=== PATIENT | female | born 1975 | race Caucasian/White ===

== ENCOUNTER 2017-11-25 22:56 | Inpatient (IN) | payer BC, OTHER ==
[~2017-11-25] VITALS: Ht 162.6 cm; Wt 107.9 kg
--- NOTE | ~2017-11-25 | EKG ---
[address] [address] ELECTROCARDIOGRAM REPORT Name: LARY EDGE Room #: 243-[facility].R.#: [id number] Admission: 11/26/17 Attend Phys: Dmitry Lo MD Discharge: Date of : 77 Report #: [id number] THIS REPORT FOR: //name// [facility] ED Test Date: 2017-11-25 Test Time: 23:02:29 Pat Name: LARY EDGE Department: Room: 243 Gender: F Biological Plant Operator: RAINA : 1975 Requested By: Frankie Flores Order Number: [id number] MD: Bharathi Gomez Measurements Intervals [place] Rate: 90 P: 39 IN: 149 QRS: 20 QRSD: 88 T: 35 QT: 395 QTc: 484 Interpretive Statements Sinus rhythm RSR' in V1 or V2, probably normal variant Borderline T abnormalities, anterior leads No previous ECG available for comparison Electronically Signed On 11-26-2017 7:53:19 RELIGIOUS LEADER by Bharathi Gomez [email or web address] <ELECTRONICALLY SIGNED> By: Bharathi Gomez MD, [facility] 11/26/17 0753 01 01 Bharathi Gomez MD, [facility] /EPI
--- NOTE | ~2017-11-25 | HC ---
[facility] [place] [address] CONSULTATION Name: LARY EDGE Room #: 243-[facility].R.#: [id number] Admission: 11/26/17 Attend Phys: Gilberto Moon DO Discharge: Date of : 77 Report #: [id number] THIS REPORT FOR: //name// CC: Dmitry Canseco PRIMARY CARE PHYSICIAN: Genny Burger MD REFERRAL PHYSICIAN: Dmitry Lo MD REASON FOR REFERRAL: Dyspnea. HISTORY OF PRESENT ILLNESS: The patient is a 42-year-old white female who presents to the Emergency Room with dyspnea. Pulmonary consultation was requested. The patient has a complex medical history. She states that she did develop PEANUT ALLERGIES about 3 years ago. She does not believe she has had ALLERGIES TO PEANUTS prior to that. She notes that when she is exposed to peanut allergy, she will get scratchy throat. Her voice will get hoarse then she feels like her throat is about to shut. Her last episode was about a month ago. Symptoms were now severe enough where she presented to Emergency Room. She has never visited an notch grinder. She has not seen an ENT in the past. She also states that she had a rather traumatic upbringing. There were a lot of stresses in the family. She has also been diagnosed with fibromyalgia. Yesterday prior to presentation, she stated that she was exposed to peanut oil using cooking. She developed a scratchy throat, hoarse voice and dyspnea. For that reason, she presented to Emergency Room. In the ER, she was given few courses of racemic epinephrine, corticosteroids, Benadryl. Presently, she appears to be in no distress. She is complaining that leg is hurting due to fibromyalgia. Doing yoga stretches helps. The patient has been on lisinopril for many years without difficulty, without problems including angioedema. 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 PAST SURGICAL HISTORY: As mentioned above. ALLERGIES: PEANUTS, but none to medications. [facility] [address] [place] [address] CONSULTATION Name: LARY EDGE Room #: 243-[facility].R.#: [id number] Admission: 11/26/17 Attend Phys: Gilberto Moon DO Discharge: Date of : 77 Report #: [id number] MEDICATIONS: Include lisinopril 20 mg once a day, AccuNeb nebulized p.r.n. FAMILY HISTORY: Father . He has had a cancer of unknown origin. Mother alive, she has cardiac disease. SOCIAL HISTORY: As mentioned above. She states that there has been some trauma in the family when she was growing up. She is . She still deals with some stresses and anxiety disorder from upbringing. She has smoked less than a pack a day. She has smoked for many years, quit about 4 years ago. She drinks occasionally. She works out of the home. REVIEW OF SYSTEMS: As mentioned above. Otherwise, 10-point system review negative. PHYSICAL EXAMINATION: GENERAL: She is awake, alert, in no distress. VITAL SIGNS: Temperature is 98 degrees Fahrenheit, pulse is 110, respiratory rate is 20, blood pressure is 170/100 mmHg, saturations 98%. HEENT: Unremarkable. NECK: Supple without lymphadenopathy or thyromegaly. CHEST: Breath sounds are clear bilaterally without any rales or wheezes. CARDIOVASCULAR: Normal S1, S2. There are no murmurs or gallop. There is no JVD. There is no carotid bruit. Pulses are 2+/4+ bilaterally. ABDOMEN: Soft, nontender, no organomegaly or masses felt. GENITOURINARY: Deferred. RECTAL: Deferred. EXTREMITIES: There is no edema, cyanosis or clubbing. LABORATORY DATA: Chest x-ray is clear. Influenza antigen was negative for A and B. Rapid group screen is negative. Electrolytes are normal except for creatinine of 1.3, bicarbonate is 19, sodium is 139, potassium 3.6, chloride 102. Liver enzymes are normal. WBC 8100, hemoglobin is 14.6, platelets are normal. No evidence of eosinophilia or bandemia. Albumin 3.2. Dyspnea in this 42-year-old white female with an apparent history of severe ALLERGY TO PEANUTS. She is felt to have stridor on presentation. She was exposed to peanut oil at home earlier today. Please see comments below. IMPRESSION: 1. ALLERGY APPARENTLY TO PEANUTS with an apparent angioedema in the past. 2. Hypertension. The patient has been on lisinopril for many years without any problems including angioedema. 3. 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 4. Fibromyalgia. 5. History of anxiety and stress disorder. [facility] [address] [place] [address] CONSULTATION Name: LARY EDGE Room #: 243-[facility] M.R.#: [id number] Admission: 11/26/17 Attend Phys: Gilberto MoonDO Discharge: Date of : 77 Report #: [id number] RECOMMENDATION AND DISCUSSION: Agree with plans with corticosteroids, racemic epinephrine and Benadryl p.r.n. Agree with obtaining IgE level. Would also recommend ENT evaluation. As an outpatient, she will benefit from allergy consultation. It is of interest in that she developed allergies 3 years ago to peanut. This is rather unusual. I wonder if there are other causes to her symptoms. In particular, the patient states that she has had a traumatic upbringing in the family. She appears to be dealing with a lot of emotional turmoil at present. She may benefit from either psychology or psychiatric evaluation, consultation and treatment. DVT and GI prophylaxis recommended. Thank you for this consultation. <ELECTRONICALLY SIGNED> By: Leighton Canseco MD 11/27/17 1742 [id number] 1719 Leighton Canseco MD /nt
[2017-11-25 23:45] VITALS: BP 154/100
[2017-11-25] MEDS ORDERED: PRINIVIL20 MG PO (23:52)
[2017-11-25] MEDS ORDERED: ALBUTEROL2.5 MG/31 INH (23:53)
[2017-11-26] VITALS (22 sets, daily range): BP systolic 122–169; BP diastolic 76–104
[2017-11-26 00:28] LABS: ABSOLUTE NEUTROPHILS 5.4 thou/uL (1.4-8.2); BASOPHILS 1.1 % (0.0-2.0); EOSINOPHILS 2.3 % (0.0-3.0); HEMATOCRIT 42.1 % (37.0-47.0); HEMOGLOBIN 14.6 gm/dL (12.0-15.0); LYMPHOCYTES 25.2 % (24.0-44.0); MCHC 34.7 g/dL (28.0-37.0); MCV 92.2 fL (80.0-100.0); MONOCYTES 5.7 % (1.0-8.0); PLATELET COUNT 267 thou/uL (150-400); POLYS 65.7 % (36.0-66.0); RBC 4.56 mil/uL (4.20-5.00); RDW 13.8 % (10.5-14.5); WBC 8.1 thou/uL (4.0-11.0)
[2017-11-26 00:38] LABS: CALCIUM 9.8 mg/dL (8.5-10.1); CREATININE 1.1 mg/dL (0.6-1.0); POTASSIUM 3.2 mmol/L (3.5-5.1)
[2017-11-26 00:44] LABS: ALBUMIN 3.5 g/dL (3.4-5.0); TOTAL BILIRUBIN 0.5 mg/dL (<0.1-1.0); TOTAL PROTEIN 7.5 g/dL (6.4-8.2)
[2017-11-26] MEDS ORDERED: PREDNISONE 20 M20 MG PO (02:04)
[2017-11-26] MEDS ORDERED: BENADRYL25 MG PO (02:04)
[2017-11-26 07:58] LABS: CALCIUM 9.9 mg/dL (8.5-10.1); CREATININE 1.3 mg/dL (0.6-1.0); POTASSIUM 3.6 mmol/L (3.5-5.1)
[2017-11-27] VITALS (20 sets, daily range): BP systolic 111–170; BP diastolic 69–107
[2017-11-27 04:36] LABS: HEMATOCRIT 34.3 % (37.0-47.0); MCH 31.4 pg (26.0-34.0); MCV 92.4 fL (80.0-100.0); PLATELET COUNT 266 thou/uL (150-400); RBC 3.71 mil/uL (4.20-5.00); RDW 13.9 % (10.5-14.5); WBC 20.7 thou/uL (4.0-11.0)
[2017-11-27 05:01] LABS: CALCIUM 8.3 mg/dL (8.5-10.1); POTASSIUM 3.8 mmol/L (3.5-5.1)
[2017-11-27 05:40] LABS: HEMOGLOBIN 11.7 gm/dL (12.0-15.0)
[2017-11-27 08:33] LABS: PLATELET ESTIMATE NORMAL
[2017-11-28 04:00] VITALS: BP 153/96
[2017-11-28] MEDS ORDERED: PREDNISONE 20 M20 MG PO (08:30)
[2017-11-28] MEDS ORDERED: PROTONIX40 M1 PO (08:30)
[2017-11-28] MEDS ORDERED: MELATONIN5 M1 PO (08:30)
[2017-11-28 08:50] VITALS: BP 164/96
[2017-11-28 09:16] LABS: CALCIUM 8.2 mg/dL (8.5-10.1)
[2017-11-28 16:58] VITALS: BP 134/81
[2017-11-28] MEDS ORDERED: VISTARIL 25 MG25 M1 PO (18:21)
[2017-11-28 20:00] VITALS: BP 151/94
[2017-11-29 04:00] VITALS: BP 141/92
[2017-11-29 06:12] LABS: HEMATOCRIT 36.7 % (37.0-47.0); HEMOGLOBIN 12.3 gm/dL (12.0-15.0); MCH 31.4 pg (26.0-34.0); MCHC 33.5 g/dL (28.0-37.0); MCV 93.8 fL (80.0-100.0); RBC 3.92 mil/uL (4.20-5.00); RDW 14.1 % (10.5-14.5); WBC 18.8 thou/uL (4.0-11.0)
[2017-11-29 07:04] LABS: CALCIUM 8.2 mg/dL (8.5-10.1)
[2017-11-29 09:19] VITALS: BP 155/103
[2017-11-29 09:20] VITALS: BP 160/111
[2017-11-29 16:44] VITALS: BP 136/84
[2017-11-29 16:55] VITALS: BP 136/84
[2017-11-29 20:01] VITALS: BP 133/84
[2017-11-30 04:00] VITALS: BP 146/96
[2017-11-30 06:33] LABS: HEMOGLOBIN 11.4 gm/dL (12.0-15.0); MCH 31.6 pg (26.0-34.0); MCHC 34.5 g/dL (28.0-37.0); MCV 91.7 fL (80.0-100.0); RBC 3.6 mil/uL (4.20-5.00); RDW 14.3 % (10.5-14.5); WBC 13.5 thou/uL (4.0-11.0)
[2017-11-30 06:48] LABS: CALCIUM 8.1 mg/dL (8.5-10.1); CREATININE 1.1 mg/dL (0.6-1.0); POTASSIUM 3.6 mmol/L (3.5-5.1)
[2017-11-30 08:41] VITALS: BP 129/105
[2017-11-30] MEDS ORDERED: AUGMENTIN 875-1 EACH PO (09:22)
[2017-11-30] MEDS ORDERED: VENTOLIN HFA 1818 GM INH (09:23)
[2017-11-30] MEDS ORDERED: TESSALON PERLE100 MG PO (09:26)
[2017-11-30 11:42] VITALS: BP 136/84
== END 2017-11-30 13:05 | disposition home or self-care (01) | DRG 203 ==
LOC: ER 22:56 → EROBS 11-26 02:22 → ER 11-26 02:22 → EROBS 11-26 04:29 → ICU 11-26 04:29 → 4N 11-27 23:26
PROVIDERS: Family Medicine; Internal Medicine Pulmonary Disease; Nurse Practitioner; Nurse Practitioner Family
DX: J20.9 Acute bronchitis, unspecified (principal); T78.1XXA Other adverse food reactions, not elsewhere classified, initial encounter; R06.1 Stridor; X58.XXXA Exposure to other specified factors, initial encounter; I10 Essential (primary) hypertension; M79.7 Fibromyalgia; G43.909 Migraine, unspecified, not intractable, without status migrainosus; F41.9 Anxiety disorder, unspecified; J06.9 Acute upper respiratory infection, unspecified; K21.9 Gastro-esophageal reflux disease without esophagitis; F43.10 Post-traumatic stress disorder, unspecified; Z90.5 Acquired absence of kidney; Z87.891 Personal history of nicotine dependence; Z91.010 Allergy to peanuts
CPT/HCPCS: 10078; 10790